=== PATIENT | male | born 1990 | race African-American/Black ===

== ENCOUNTER 2017-01-08 20:50 | Emergency (ER) | payer BC, OTHER ==
[2017-01-08 21:00] VITALS: BMI 25.8
[2017-01-08] MEDS ORDERED: SODIUM CHLORIDE 0.9% 500 ML INFUS.BAG IV ONE (22:19)
--- NOTE | 2017-01-08 22:20 | PDOC ---
History of Present Illness - General Chief Complaint: Pain Stated Complaint: FEVER,PAIN Time Seen by Provider: 01/08/17 22:10 History Source: Patient - History of Present Illness Initial Comments: 01/09/17 01:51 26 year old male referred to ED by Naomi for elevated CPK. patient reports generalized bodyache and back pain since yesterday. denies trauma, numbness and tingling to lower extremity. patient denies cough, chest pain, NVD denies past medical history Past History - Past Medical History Allergies/Adverse Reactions: Allergies Allergy/AdvReac Type Severity Reaction Status Date / Time No Known Allergies Allergy Verified 01/08/17 20:59 Other medical history: denies - Psycho/Social/Smoking Cessation Hx Suicidal Ideation: No Smoking History: Never smoked Review of Systems - Review of Systems Able to Perform ROS?: Yes Is the patient limited Green[place]ic proficient: No Musculoskeletal: Yes: Back Pain, Muscle Pain *Physical Exam - Vital Signs Last Vital Signs Temp Pulse Resp BP Pulse Ox 98.8 F 93 H 18 136/76 99 01/08/17 20:57 01/08/17 20:57 01/08/17 20:57 01/08/17 20:57 01/08/17 20:57 - Physical Exam General Appearance: Yes: Appropriately Dressed Respiratory/Chest: positive: Lungs Clear, Normal Breath Sounds Cardiovascular: positive: Regular Rhythm, Regular Rate Gastrointestinal/Abdominal: positive: Normal Bowel Sounds, Soft Musculoskeletal: positive: Normal Inspection, CVA Tenderness Extremity: positive: Normal Capillary Refill, Normal Inspection, Normal Range of Motion Integumentary: positive: Normal Color, Dry, Warm Neurologic: positive: Fully Oriented ED Treatment Course - LABORATORY CBC & Chemistry Diagram: 01/08/17 22:20 01/08/17 22:23 Medical Decision Making - Medical Decision Making 01/09/17 01:56 A: muscle pain, P: cbc cmp Ua: + [address] spiral and lumbar to rule out any acute findings, 01/09/17 04:24 Patient advised to follow up with PMD. likely viral syndrome. patient advised to follow up with pmd Barrington maciel tomorrow. CT results lumbar spine: small L5/ S1 disc herniation minimally abuts the descending nerve right S1 nerve root, which should be clinically correlated with any radiculopathy. patient is currently asymptomatic. advised to follow up neurology and limit weight lifting until cleared by ortho/ neurology. *DC/Admit/Observation/Transfer Diagnosis at time of Disposition: Non-traumatic rhabdomyolysis, Lumbar disc disorder with myelopathy - Discharge Dispostion Disposition: HOME - Referrals Referrals: Talha Maciel MD [Primary Care Provider] - Tong Payne MD [Staff Physician] - - Patient Instructions Printed Discharge Instructions: DI for Rhabdomyolysis Additional Instructions: follow up with your pmd as soon as possible. return to [facility] ED if the symptoms persist - Post Discharge Activity Work/School Note: Back to Work
[2017-01-08 22:28] LABS: BASOPHIL 0.2 % (0-2.0); EOSINOPHIL 0.4 % (0-4.5); MCH 29.1 pg (25.7-33.7); MCHC 33.9 g/dl (32.0-35.9); MEAN CELL VOLUME 85.8 fl (80-96); MEAN PLT VOLUME 8.7 fl (7.5-11.1); NEUTROPHILS 76.2 % (42.8-82.8); PLATELET COUNT 262 K/MM3 (134-434); WHITE BLOOD COUNT 12.5 K/mm3 (4.0-10.0)
[2017-01-08] MEDS ORDERED: METOCLOPRAMIDE HCL INJECTION 10 MG/2 ML VIAL IVPB ONE (22:28)
[2017-01-08] MEDS ORDERED: METOCLOPRAMIDE HCL INJECTION 10 MG/2 ML VIAL ONE (22:37)
--- NOTE | 2017-01-08 22:52 | PDOC ---
*Physical Exam - Vital Signs Last Vital Signs Temp Pulse Resp BP Pulse Ox 98.8 F 93 H 18 136/76 99 01/08/17 20:57 01/08/17 20:57 01/08/17 20:57 01/08/17 20:57 01/08/17 20:57 ED Treatment Course - LABORATORY CBC & Chemistry Diagram: 01/08/17 22:20 01/08/17 22:23 - ADDITIONAL ORDERS Additional order review: 01/08/17 22:20 RBC 5.45 MCV 85.8 MCHC 33.9 RDW 13.0 MPV 8.7 Neutrophils % 76.2 Lymphocytes % 11.2 Monocytes % 12.0 H Eosinophils % 0.4 Basophils % 0.2 - Medications Given in the ED: ED Medications Discontinued Medications Generic Name Dose Route Start Last Admin Trade Name Emily PRN Reason Stop Dose Admin Metoclopramide HCl 10 mg 01/08/17 22:28 01/08/17 22:35 Reglan Injection - IVPB 01/08/17 22:29 10 mg ONCE ONE Administration Sodium Chloride 1,000 ml 01/08/17 22:19 01/08/17 22:23 Normal Saline - IV 01/08/17 22:20 1,000 ml ONCE ONE Administration Medical Decision Making - Medical Decision Making 01/08/17 22:52 agree with care from ESTEFANIA Lowe *DC/Admit/Observation/Transfer Diagnosis at time of Disposition: Non-traumatic rhabdomyolysis, Lumbar disc disorder with myelopathy - Discharge Dispostion Disposition: HOME - Referrals Referrals: Talha Storey MD [Primary Care Provider] - Tong Payne MD [Staff Physician] - - Patient Instructions Printed Discharge Instructions: DI for Rhabdomyolysis Additional Instructions: follow up with your pmd as soon as possible. return to [facility] ED if the symptoms persist - Post Discharge Activity Work/School Note: Back to Work
[2017-01-08 22:57] LABS: ALBUMIN 4.6 g/dl (3.4-5.0); ANION GAP 7 (8-16); BILIRUBIN,TOTAL 0.7 mg/dL (0.2-1.0); CALCIUM 9.3 mg/dL (8.5-10.1); CO2 31 mmol/L (21-32); CREATININE 1.1 mg/dL (0.7-1.3); GLUCOSE,RANDOM 88 mg/dL (74-106); SGOT/AST 24 U/L (15-37); SGPT/ALT 46 U/L (12-78); TOT PROT 9.3 g/dl (6.4-8.2)
[2017-01-08 23:00] LABS: ALK PHOS 95 U/L (45-117); CPK 632 IU/L (39-308); TROPONIN I < 0.02 ng/ml (0.00-0.05)
[2017-01-08 23:55] LABS: URINE APPEARANCE SLCLOUDY; URINE BILIRUBIN NEGATIVE (NEGATIVE); URINE BLOOD 2+ (NEGATIVE); URINE COLOR YELLOW; URINE GLUCOSE (UA) NEGATIVE (NEGATIVE); URINE KETONE NEGATIVE (NEGATIVE); URINE LEUK ESTERASE NEGATIVE (NEGATIVE); URINE NITRITE NEGATIVE (NEGATIVE); URINE UROBILINOGEN NEGATIVE mg/dL (0.2-1.0)
[2017-01-09 00:09] LABS: URINE PROTEIN 1+ (NEGATIVE)
[2017-01-09 00:11] LABS: URINE MUCUS FEW; URINE RBC 41 /hpf (0-3); URINE WBC 3 /hpf (3-5)
[2017-01-09] MEDS ORDERED: ACETAMINOPHEN 325 MG TABLET (FP) ONE (00:13)
[2017-01-09] MEDS ORDERED: ACETAMINOPHEN 500 MG TABLET (FP) PO ONE (00:15)
[2017-01-09 04:11] VITALS: TEMP 98.7
[2017-01-09 04:12] VITALS: BP 123/70; PULSE 82
== END 2017-01-09 04:12 | disposition home or self-care (01) ==
LOC: JER 20:50
PROC: 3E033GC Introduction of Other Therapeutic Substance into Peripheral Vein, Percutaneous Approach (ICD-10-PCS; principal; 2017-01-08)
DX: M62.82 Rhabdomyolysis (principal); M51.06 Intervertebral disc disorders with myelopathy, lumbar region
CPT/HCPCS: 36415; 72131-TC; 74176; 80053; 81003; 81015; 82553; 84484; 85025; 99284-25